=== PATIENT | female | born 1975 | race Caucasian/White ===

== ENCOUNTER 2018-08-08 00:18 | Emergency (ER) | payer OTHER | END 2018-08-08 00:56 | disposition home or self-care (01) | LOC: E/R 00:18 | DX: T82.898A Other specified complication of vascular prosthetic devices, implants and grafts, initial encounter (principal); Y71.2 Prosthetic and other implants, materials and accessory cardiovascular devices associated with adverse incidents; Z91.040 Latex allergy status; Z85.3 Personal history of malignant neoplasm of breast | CPT/HCPCS: 99282; Z7502 ==

== ENCOUNTER 2018-12-27 16:19 | Emergency (ER) | payer OTHER ==
[2018-12-27 17:46] LABS: ADD MAN DIFF? NO
[2018-12-27] MEDS: HYDROmorphONE 1 MG/ML SYG IV (17:47)
[2018-12-27] MEDS: ONDANSETRON 4 MG INJ IV (17:47)
[2018-12-27 17:48] LABS: BASOPHIL # 0.1 10^3/ul (0.0-0.1); BASOPHILS % 0.7 % (0.0-2.0); EOSINOPHILS # 0.3 10^3/ul (0.0-0.5); EOSINOPHILS % 4.5 % (0.0-7.0); HEMATOCRIT 41.9 % (37.0-47.0); HEMOGLOBIN 13.8 g/dl (12.0-16.0); LYMPHOCYTES # 1.3 10^3/ul (0.8-2.9); LYMPHOCYTES % 18.8 % (15.0-51.0); MEAN CORPUSCULAR HEMOGLOBIN 28.2 pg (29.0-33.0); MEAN CORPUSCULAR HGB CONC 32.9 g/dl (32.0-37.0); MEAN CORPUSCULAR VOLUME 85.5 fl (82.0-101.0); MEAN PLATELET VOLUME 9.6 fl (7.4-10.4); MONOCYTE # 0.6 10^3/ul (0.3-0.9); MONOCYTES % 8.1 % (0.0-11.0); NEUTROPHIL # 4.7 10^3/ul (1.6-7.5); PLATELET COUNT 336 10^3/UL (140-415); RED CELL DISTRIBUTION WIDTH 13.2 % (11.5-14.5)
[2018-12-27 18:03] LABS: INR 0.96; PROTIME 12.9 Sec (11.9-14.9)
[2018-12-27 18:04] LABS: PARTIAL THROMBOPLASTIN TIME 31.2 Sec (23.0-35.0)
[2018-12-27 18:08] LABS: ALBUMIN 4.4 g/dl (3.3-4.9); ALBUMIN/GLOBULIN RATIO 1.07; ALKALINE PHOSPHATASE 618 IU/L (42-121); AMYLASE 95 U/L (11-123); ANION GAP 10 (5-13); ASPARTATE AMINO TRANSFERASE 364 IU/L (15-46); BILIRUBIN,INDIRECT 0.1 mg/dl (0-1.1); BILIRUBIN,TOTAL 0.1 mg/dl (0.2-1.3); BLOOD UREA NITROGEN 12 mg/dl (7-20); CALCIUM 10.1 mg/dl (8.4-10.2); CARBON DIOXIDE 26 mmol/L (21-31); CHLORIDE 104 mmol/L (97-110); CREATININE 0.75 mg/dl (0.44-1.00); Estimated GFR > 60 mL/min (>60); GAMMA GLUTAMYL TRANSPEPTIDASE 428 IU/L (0-50); GLUCOSE 115 mg/dl (70-220); LIPASE 222 U/L (23-300); POTASSIUM 4.6 mmol/L (3.5-5.1); SODIUM 140 mmol/L (135-144); TOTAL PROTEIN 8.5 g/dl (6.1-8.1)
[2018-12-27 19:07] LABS: ALANINE AMINOTRANSFERASE 1111 IU/L (13-69)
== END 2018-12-27 20:44 | disposition home or self-care (01) ==
LOC: E/R 16:19
DX: R74.0 Nonspecific elevation of levels of transaminase and lactic acid dehydrogenase [LDH] (principal); Z00.00 Encounter for general adult medical examination without abnormal findings; Z91.040 Latex allergy status
CPT/HCPCS: 36415; 80053; 82150; 82977; 83690; 85025; 85610; 85730; 96374; 96375; 99284-25